=== PATIENT | male | born 1990 | race Caucasian/White ===

== ENCOUNTER 2022-03-14 09:08 | Emergency (ER) | payer MEDICAID ==
[~2022-03-14] VITALS: Ht 182.8 cm; Wt 58.9 kg
[2022-03-14 09:23] VITALS: BP 119/82
== END 2022-03-14 10:49 | disposition left against medical advice (07) ==
LOC: ER 09:11
DX: R05.9 Cough, unspecified (principal); R51.9 Headache, unspecified
CPT/HCPCS: 87636; 99283